=== PATIENT | male | born 1970 | race African-American/Black ===

== ENCOUNTER 2019-04-20 09:48 | Emergency (ER) | payer MEDICAID ==
[~2019-04-20] VITALS: Ht 180.3 cm; Wt 84.0 kg
[2019-04-20 10:06] VITALS: BP 153/102
[2019-04-20] MEDS ORDERED: SODIUM CHLORIDE 0.9% 1,000 ML IV ONE (11:41)
[2019-04-20] MEDS ORDERED: ACETAMINOPHEN 500MG TABLET PO ONE (11:45)
== END 2019-04-20 12:04 | disposition left against medical advice (07) ==
LOC: ER 09:48
DX: R07.89 Other chest pain (principal); R51 Headache; R55 Syncope and collapse; R42 Dizziness and giddiness
CPT/HCPCS: 99282; J7030